=== PATIENT | female | born 2000 | race Caucasian/White ===

== ENCOUNTER 2018-09-01 12:48 | Outpatient (CLI) | payer OTHER | END 2018-09-01 17:50 | disposition home or self-care (01) | LOC: OBT 12:48 → L-D 12:48 → OBT 17:50 | DX: O36.8120 Decreased fetal movements, second trimester, not applicable or unspecified (principal); Z3A.27 27 weeks gestation of pregnancy | CPT/HCPCS: 76815; 76818 ==

== ENCOUNTER 2018-10-21 13:45 | Outpatient (CLI) | payer OTHER | END 2018-10-21 15:20 | disposition home or self-care (01) | LOC: OBT 13:45 → L-D 13:47 → OBT 15:20 | DX: O41.03X0 Oligohydramnios, third trimester, not applicable or unspecified (principal); Z3A.34 34 weeks gestation of pregnancy | CPT/HCPCS: 76818 ==

== ENCOUNTER 2018-10-25 12:02 | Outpatient (CLI) | payer OTHER | END 2018-10-25 15:12 | disposition home or self-care (01) | LOC: OBT 12:02 → L-D 12:06 → OBT 15:12 | DX: O41.93X0 Disorder of amniotic fluid and membranes, unspecified, third trimester, not applicable or unspecified (principal); Z3A.34 34 weeks gestation of pregnancy | CPT/HCPCS: 76818 ==

== ENCOUNTER 2018-11-03 10:16 | Inpatient (IN) | payer OTHER ==
[2018-11-03] MEDS: LACTATED RINGER'S 1,000 ML IV ×2 (17:46→23:53)
[2018-11-04] MEDS: LACTATED RINGER'S 1,000 ML IV (06:56)
[2018-11-04 12:38] LABS: RUPTURE FETAL MEMBRANES NEGATIVE (NEGATIVE)
== END 2018-11-04 13:10 | disposition home or self-care (01) | DRG 833 ==
LOC: OBT 10:16 → L-D 10:17 → OBT 13:00 → L-D 13:00
PROVIDERS: Obstetrics & Gynecology
PROC: 4A0HXCZ Measurement of Products of Conception, Cardiac Rate, External Approach (ICD-10-PCS; principal; 2018-11-03)
DX: O60.03 Preterm labor without delivery, third trimester (principal); Z3A.37 37 weeks gestation of pregnancy
CPT/HCPCS: 76818; 84112

== ENCOUNTER 2018-11-08 11:52 | Inpatient (IN) | payer OTHER ==
[2018-11-08] MEDS: LACTATED RINGER'S 1,000 ML IV ×2 (16:38→19:49)
[2018-11-09] MEDS ORDERED: DIPHENHYDRAMINE 50 MG INJ (01:25)
[2018-11-09] MEDS: DIPHENHYDRAMINE 50 MG INJ IV (01:47)
[2018-11-09] MEDS: LACTATED RINGER'S 1,000 ML IV (05:03)
[2018-11-09] MEDS: FERROUS SULFATE (EC) 325 MG TAB PO (10:09)
[2018-11-09] MEDS: PRENATAL VITAMIN PO (10:09)
== END 2018-11-09 15:17 | disposition home or self-care (01) | DRG 833 ==
LOC: OBT 11:52 → L-D 11:53 → OBT 13:25 → L-D 13:25
DX: O41.03X0 Oligohydramnios, third trimester, not applicable or unspecified (principal); Z3A.37 37 weeks gestation of pregnancy
CPT/HCPCS: 76818

== ENCOUNTER 2018-11-18 16:27 | Inpatient (IN) | payer OTHER ==
[2018-11-18 17:13] LABS: ADD MAN DIFF? NO
[2018-11-18 17:17] LABS: WHITE BLOOD COUNT 13.2 10^3/ul (4.8-10.8)
[2018-11-18 17:17] LABS: BASOPHIL # 0.1 10^3/ul (0.0-0.1); BASOPHILS % 0.4 % (0.0-2.0); EOSINOPHILS # 0.1 10^3/ul (0.0-0.5); EOSINOPHILS % 0.7 % (0.0-7.0); HEMATOCRIT 39.2 % (37.0-47.0); HEMOGLOBIN 13.5 g/dl (12.0-16.0); LYMPHOCYTES # 1.7 10^3/ul (0.8-2.9); LYMPHOCYTES % 12.9 % (18.0-55.0); MEAN CORPUSCULAR HEMOGLOBIN 30.8 pg (29.0-33.0); MEAN CORPUSCULAR HGB CONC 34.4 g/dl (32.0-37.0); MEAN CORPUSCULAR VOLUME 89.3 fl (72.0-104.0); MEAN PLATELET VOLUME 9.8 fl (7.4-10.4); MONOCYTE # 0.5 10^3/ul (0.3-0.9); MONOCYTES % 3.9 % (0.0-13.0); NEUTROPHIL # 10.7 10^3/ul (1.6-7.5); NEUTROPHILS % 81.3 % (30.0-74.0); PLATELET COUNT 239 10^3/UL (140-415); RED BLOOD COUNT 4.39 10^6/ul (4.20-5.40); RED CELL DISTRIBUTION WIDTH 12.9 % (11.5-14.5)
[2018-11-18 17:35] LABS: ALANINE AMINOTRANSFERASE 11 IU/L (13-69); ALBUMIN 3.9 g/dl (3.3-4.9); ALBUMIN/GLOBULIN RATIO 1.11; ALKALINE PHOSPHATASE 178 IU/L (42-121); ANION GAP 11 (5-13); ASPARTATE AMINO TRANSFERASE 21 IU/L (15-46); BILIRUBIN,INDIRECT 0.3 mg/dl (0-1.1); BILIRUBIN,TOTAL 0.3 mg/dl (0.2-1.3); BLOOD UREA NITROGEN 7 mg/dl (7-20); CALCIUM 9.3 mg/dl (8.4-10.2); CARBON DIOXIDE 20 mmol/L (21-31); CHLORIDE 108 mmol/L (97-110); CREATININE 0.61 mg/dl (0.44-1.00); Estimated GFR > 60 mL/min (>60); GLUCOSE 142 mg/dl (70-220); POTASSIUM 3.5 mmol/L (3.5-5.1); SODIUM 139 mmol/L (135-144); TOTAL PROTEIN 7.4 g/dl (6.1-8.1)
[2018-11-18 17:37] LABS: AMYLASE 104 U/L (11-123)
[2018-11-18 17:37] LABS: INR 0.91; LIPASE 148 U/L (23-300); PARTIAL THROMBOPLASTIN TIME 26.8 Sec (23.0-35.0); PROTIME 12.4 Sec (11.9-14.9)
[2018-11-18 19:45] LABS: HEPATITIS B SURFACE ANTIGEN NEGATIVE (NEGATIVE)
[2018-11-18] MEDS ORDERED: LIDOCAINE 1% (MPF) 30 ML INJ INJ (21:00)
[2018-11-18] MEDS ORDERED: CARBOPROST 250 MCG INJ IM (21:00)
[2018-11-18] MEDS ORDERED: IBUPROFEN 600 MG TAB PO (21:00)
[2018-11-18] MEDS ORDERED: OXYTOCIN 30 UNITS/LR 500 ML IV (21:00)
[2018-11-18] MEDS ORDERED: MINERAL OIL LIGHT 10 ML VIAL TOP (21:00)
[2018-11-18] MEDS: LACTATED RINGER'S 1,000 ML IV (22:06)
[2018-11-18] MEDS: MISOPROSTOL 50 MCG CAPSULE PO (22:16)
[2018-11-19] MEDS: BUTORPHANOL 2 MG INJ IV (03:01)
[2018-11-19] MEDS ORDERED: OXYTOCIN 30 UNITS/LR 500 ML IV ×2 (04:30→17:00)
[2018-11-19] MEDS: LACTATED RINGER'S 1,000 ML IV ×4 (04:33→14:13)
[2018-11-19] MEDS ORDERED: MIDAZOLAM 1 MG/ML 2 ML INJ (05:05)
[2018-11-19] MEDS ORDERED: FENTAnyl 2MCG/ML-ROPIV 0.2% 100 ML (05:15)
[2018-11-19] MEDS: MIDAZOLAM 1 MG/ML 2 ML INJ IV (05:33)
[2018-11-19] MEDS ORDERED: NALOXONE (0.4 MG/ML) INJ IV (08:00)
[2018-11-19] MEDS: FENTAnyl 2MCG/ML-ROPIV 0.2% 100 ML BAG EPI ×2 (09:21→11:21)
[2018-11-19] MEDS: AMPICILLIN 2 GM/NS (PMX) 100 ML IV (11:16)
[2018-11-19] MEDS: AMPICILLIN 1 GM/NS (PMX) 50 ML IV (13:47)
[2018-11-19] MEDS ORDERED: CEFAZOLIN 2 GM/50 ML (PMX) 50 ML IVPB (14:33)
[2018-11-19] MEDS: METHYLERGONOVINE 0.2 MG INJ IM (14:35)
[2018-11-19] MEDS: MISOPROSTOL 200 MCG TAB PR (14:42)
[2018-11-19] MEDS: CEFAZOLIN 2 GM/50 ML (PMX) 50 ML IVPB (14:58)
[2018-11-19] MEDS: OXYTOCIN 30 UNITS/LR 500 ML IV ×3 (14:59→19:51)
[2018-11-19] MEDS ORDERED: ONDANSETRON 4 MG INJ (15:45)
[2018-11-19] MEDS ORDERED: ONDANSETRON 4 MG INJ IV ×2 (16:00→17:00)
[2018-11-19] MEDS: ONDANSETRON 4 MG INJ IV (16:01)
[2018-11-19] MEDS ORDERED: LANOLIN HPA 1 PKT TOP (17:00)
[2018-11-19] MEDS ORDERED: MISOPROSTOL 200 MCG TAB PR (17:00)
[2018-11-19] MEDS ORDERED: MAGNESIUM HYDROXIDE 30ML CUP PO (17:00)
[2018-11-19] MEDS ORDERED: CARBOPROST 250 MCG INJ IM (17:00)
[2018-11-19] MEDS ORDERED: METHYLERGONOVINE 0.2 MG INJ IM (17:00)
[2018-11-19] MEDS ORDERED: ACETAMINOPHEN 325 MG TAB PO (17:00)
[2018-11-19] MEDS ORDERED: DIBUCAINE 1% 30 GM OINT TOP (17:00)
[2018-11-19] MEDS ORDERED: SENNA/DOCUSATE NA (8.6MG/50MG) TAB PO (17:00)
[2018-11-19] MEDS: LACTATED RINGER'S 1,000 ML IV* (18:00)
[2018-11-19] MEDS: WITCH HAZEL/GLYCERIN PAD PR (19:50)
[2018-11-19] MEDS: BENZOCAINE 20% 56 ML SPRAY TOP (19:50)
[2018-11-19 20:56] LABS: RAPID PLASMA REAGIN NONREACTIVE (NR)
[2018-11-20] MEDS: LACTATED RINGER'S 1,000 ML IV* ×3 (00:55→16:55)
[2018-11-20] MEDS: ACETAMINOPHEN 325 MG TAB PO (01:02)
[2018-11-20 07:46] LABS: ADD MAN DIFF? NO
[2018-11-20 07:56] LABS: WHITE BLOOD COUNT 13.3 10^3/ul (4.8-10.8)
[2018-11-20 07:56] LABS: BASOPHIL # 0.1 10^3/ul (0.0-0.1); BASOPHILS % 0.5 % (0.0-2.0); EOSINOPHILS # 0.2 10^3/ul (0.0-0.5); EOSINOPHILS % 1.2 % (0.0-7.0); HEMATOCRIT 30.4 % (37.0-47.0); HEMOGLOBIN 10.1 g/dl (12.0-16.0); LYMPHOCYTES # 2.5 10^3/ul (0.8-2.9); LYMPHOCYTES % 19.1 % (18.0-55.0); MEAN CORPUSCULAR HEMOGLOBIN 30.5 pg (29.0-33.0); MEAN CORPUSCULAR HGB CONC 33.2 g/dl (32.0-37.0); MEAN CORPUSCULAR VOLUME 91.8 fl (72.0-104.0); MONOCYTE # 0.9 10^3/ul (0.3-0.9); MONOCYTES % 6.5 % (0.0-13.0); NEUTROPHIL # 9.6 10^3/ul (1.6-7.5); NEUTROPHILS % 72.1 % (30.0-74.0); PLATELET COUNT 190 10^3/UL (140-415); RED BLOOD COUNT 3.31 10^6/ul (4.20-5.40); RED CELL DISTRIBUTION WIDTH 13.2 % (11.5-14.5)
[2018-11-20] MEDS: IBUPROFEN 600 MG TAB PO (10:46)
[2018-11-21] MEDS: LACTATED RINGER'S 1,000 ML IV* (00:55)
[2018-11-21] MEDS: IBUPROFEN 600 MG TAB PO (03:05)
== END 2018-11-21 12:45 | disposition home or self-care (01) | DRG 807 ==
LOC: OBT 16:27 → PP1 11-19 17:30 → L-D 16:27 → OBT 20:45 → L-D 20:45
PROC: 10E0XZZ Delivery of Products of Conception, External Approach (ICD-10-PCS; principal; 2018-11-19)
PROC: 0W8NXZZ Division of Female Perineum, External Approach (ICD-10-PCS; 2018-11-19)
DX: O76 Abnormality in fetal heart rate and rhythm complicating labor and delivery (principal); Z37.0 Single live birth; Z3A.38 38 weeks gestation of pregnancy
CPT/HCPCS: 62322; 76815; 76818; 80053; 82150; 83690; 85025; 85610; 85730; 86592; 87340; 88307; 99464